=== PATIENT | female | born 2005 | race Two or more races ===

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

== ENCOUNTER 2025-01-10 01:00 | Observation (INO) | payer MEDICAID, SELFPAY ==
[2025-01-10] VITALS (12 sets, daily range): BP systolic 92–110; BP diastolic 51–57; PULSE 78–98; RESP 16–99; TEMP 37.1; O2SAT 92–100; BMI 26.7
[2025-01-10 02:03] LABS: Collection Type, Urine Clean Catch; RBC,Urine 0 /hpf (0-3)
[2025-01-10 02:57] LABS: Bacteria,Urine Rare; Bilirubin,Urine Negative (Negative); Blood,Urine Negative (Negative); Clarity,Urine Clear (Clear/Hazy); Color,Urine Colorless (Lt Yel-Yel); Glucose, Urine Negative (Negative); Ketones,Urine Negative (Negative); Leukocyte Esterase,Urine Positive (Negative); Nitrite,Urine Negative (Negative); Protein,Urine Negative (Neg - Trace); Specific Gravity,Urine 1.007 (1.001-1.035); Squamous Epithelial Cell,Urine 1 /hpf (0-5); Urobilinogen,Urine Negative mg/dL (0.0-1.0); WBC,Urine 16 /hpf (0-5)
[2025-01-10] MEDS: cefTRIAXone 1,000 MG, LIDOCAINE 1% 20 ML 2.1 ML IM (03:59)
== END 2025-01-10 05:00 | disposition home or self-care (01) ==
PROVIDERS: Admitting Provider Obstetrics & Gynecology; Visit Provider Obstetrics & Gynecology
DX: O26.892 Other specified pregnancy related conditions, second trimester (principal); Z3A.22 22 weeks gestation of pregnancy; R30.9 Painful micturition, unspecified
CPT/HCPCS: 59025; 59899; 81001; 87086; 96372; J0696; J3490

== ENCOUNTER 2025-01-22 02:45 | Observation (INO) | payer MEDICAID, SELFPAY ==
[2025-01-22] VITALS (9 sets, daily range): BP systolic 104; BP diastolic 56; PULSE 95–107; RESP 18–97; TEMP 36.8; O2SAT 93–98; BMI 18.9
--- NOTE | 2025-01-22 03:34 | XR_ITS ---
Examination: OB Transvaginal ultrasound of the pelvis, Limited Technique: Transvaginal sonographic images pelvis performed using hay scale imaging Exam date and time: January 22, 2025 at 0346 hours INDICATIONS: Vaginal bleeding beginning 2 weeks ago, labor evaluation FINDINGS: Cervix 4.3 cm closed IMPRESSION: Cervix 4.3 cm closed.
[2025-01-22 03:52] LABS: Collection Type, Urine Clean Catch; Squamous Epithelial Cell,Urine 0 /hpf (0-5)
[2025-01-22 03:57] LABS: Bilirubin,Urine Negative (Negative); Blood,Urine Negative (Negative); Clarity,Urine Clear (Clear/Hazy); Color,Urine Colorless (Lt Yel-Yel); Glucose, Urine Negative (Negative); Ketones,Urine Negative (Negative); Leukocyte Esterase,Urine Positive (Negative); Nitrite,Urine Negative (Negative); Protein,Urine Negative (Neg - Trace); RBC,Urine 1 /hpf (0-3); Specific Gravity,Urine 1.002 (1.001-1.035); Urobilinogen,Urine Negative mg/dL (0.0-1.0); WBC,Urine < 1 /hpf (0-5)
--- NOTE | 2025-01-22 04:22 | XR_ITS ---
Examination: visualization limited TECHNIQUE: Limited transabdominal sonographic images pelvis Date and time: January 22, 2025 at 0441 hours INDICATIONS: Vaginal bleeding beginning 2 weeks ago and again today FINDINGS: Viable intrauterine gestation Placenta posterior grade 1 1.8 cm from the cervix No abruption or subchorionic hemorrhage IMPRESSION: No findings of abruption or subchorionic hemorrhage
--- NOTE | 2025-01-22 05:53 | PRELIM_ITS ---
Obstetric ultrasound with Doppler. January 22, 2025 0441 hours Clinical history: Placenta- look for subchorionic hematoma/hemorrhage. Comparison: No prior study is available for comparison. Findings: There is a gravid uterus with a live fetus in cephalic presentation. cardiac activity is present at a heart rate of 136 beats per minute. The placenta is posterior in location, maturity grade 1. There is no evidence of placenta previa or retroplacental hemorrhage. Low-lying placenta at 1.8 cm from the cervix. Amniotic fluid is adequate (MERCEDEZ = 11.9 cm). No abnormalities detected by Doppler. Impression: Gravid uterus with a single live fetus in cephalic presentation. Unremarkable appearance of the placenta. Low-lying placenta at 1.8 cm from the cervix. Follow-up is recommended. Report Electronically Signed By: Mainor Little 01/22/2025 5:53:37 AM [EST]
--- NOTE | 2025-01-22 05:56 | PRELIM_ITS ---
Pelvic ultrasound (transvaginal). January 22, 2025 at 0346 hours Clinical history: Cervical length. Technique: Real-time, grayscale, transabdominal and transvaginal pelvic ultrasound was performed using Duplex scanning including arterial inflow, venous outflow, color and spectral Doppler. Comparison: No prior study is available for comparison. Findings: The cervix measures 4.3 cm, closed. Impression: The cervix measures 4.3 cm, closed. Report Electronically Signed By: Mainor Little 01/22/2025 5:55:27 AM [EST]
--- NOTE | 2025-01-22 06:29 | ESPR_ITS ---
Documentation for date of: 01/22/25 OB Labor Progress Note Pelvic Exam Amniotic membrane status: Intact Contractions Monitor mode: External Assessment and Plan Comments: Triage Note Serenity is a 19yo with SIUP at 24&1wk presenting to L&D for spotting when she wiped. No lof, no ctx. Normal movement. Current : This has only otherwise been complicated by UTI treated with rocephin and partial course of macrobid (she self discontinued the abx). Has care with Dr. Fraga in [place] ROS negative other than what was described above. Vitals wnl, afebrile General: well developed, well nourished, no acute distress, conversant Cardiac: normal heart rate Lungs: breathing without distress Abdomen: soft, gravid, non-tender, no rebound or guarding Extremities: no pain with palpation of calves NST: Reassuring for gestational age, +accels, no decels, mod hiwot Isabela: no ctx pattern Labs: Urinalysis 1 RBC <1 WBC no bacteria Radiology: Obstetric ultrasound with Doppler. January 22, 2025 0441 hours Clinical history: Placenta- look for subchorionic hematoma/hemorrhage. Comparison: No prior study is available for comparison. Findings: There is a gravid uterus with a live fetus in cephalic presentation. cardiac activity is present at a heart rate of 136 beats per minute. The placenta is posterior in location, maturity grade 1. There is no evidence of placenta previa or retroplacental hemorrhage. Low-lying placenta at 1.8 cm from the cervix. Amniotic fluid is adequate (MERCEDEZ = 11.9 cm). No abnormalities detected by Doppler. Impression: Gravid uterus with a single live fetus in cephalic presentation. Unremarkable appearance of the placenta. Low-lying placenta at 1.8 cm from the cervix. Follow-up is recommended. The cervix measures 4.3 cm, closed. Assessment: Serenity is a 19yo with SIUP at 24&1wk with no evidence of pre- term labor or residual UTI. Imaging does show low-lying placenta 1.8cm from os. Vitals wnl, benign exam. Reassuring status. Plan: -Discussed findings and diagnosis with patient and support person, answered all questions to their apparent satisfaction -Continue routine follow up with OBGYN -Discussed vaginal rest (no sex, masturbation or orgasm, etc) until after follow up ultrasound -Discussed return precautions -Safe for discharge home at this time Monique Grant MD
== END 2025-01-22 06:42 | disposition home or self-care (01) ==
PROVIDERS: Admitting Provider Obstetrics & Gynecology; Visit Provider Obstetrics & Gynecology
DX: O26.852 Spotting complicating pregnancy, second trimester (principal); O44.42 Low lying placenta NOS or without hemorrhage, second trimester; Z3A.24 24 weeks gestation of pregnancy
CPT/HCPCS: 59899; 76815; 76817; 81001

== ENCOUNTER 2025-02-12 21:38 | Observation (INO) | payer MEDICAID, SELFPAY ==
[2025-02-12] VITALS (27 sets, daily range): BP systolic 101–106; BP diastolic 53–61; PULSE 64–107; RESP 18–99; TEMP 36.7; O2SAT 99–100; BMI 28.6
--- NOTE | 2025-02-12 22:08 | XR_ITS ---
Examination: Complete OB ultrasound greater than 14 weeks Date and time of exam: February 12, 2025 1047 hours INDICATIONS: Pelvic cramping today, history of low-lying placenta Findings: Viable intrauterine single fetus with single amniotic sac presentation cephalic Cardiac motion 144 BPM Placenta posterior grade 2 Umbilical cord insertion 3 vessel seen Amniotic fluid index adequate spine maternal right Cervix 4.1 cm Ovaries obscured by bowel gas. Composite estimated gestational age based on BPD, head circumference, abdominal circumference, femur length is 27 weeks 2 days Estimated weight 1031 g. Survey of intracranial anatomy, spinal anatomy, abdominal anatomy, four-chamber heart performed with no abnormalities identified. Impression: Viable intrauterine gestation cephalic presentation.
[2025-02-12 22:39] LABS: Collection Type, Urine Voided
[2025-02-12 22:50] LABS: Bilirubin,Urine Negative (Negative); Blood,Urine Negative (Negative); Clarity,Urine Clear (Clear/Hazy); Color,Urine Colorless (Lt Yel-Yel); Glucose, Urine Negative (Negative); Ketones,Urine Negative (Negative); Leukocyte Esterase,Urine Positive (Negative); Nitrite,Urine Negative (Negative); PH,Urine 6.5 (5.0-7.0); Protein,Urine Negative (Neg - Trace); RBC,Urine 1 /hpf (0-3); Specific Gravity,Urine 1.002 (1.001-1.035); Squamous Epithelial Cell,Urine < 1 /hpf (0-5); Urobilinogen,Urine Negative mg/dL (0.0-1.0); WBC,Urine 1 /hpf (0-5)
[2025-02-12 23:15] LABS: FFN Specimen Descripton Clr Colrless Aqueous; Fetal Fibronectin Negative (Negative)
[2025-02-13] VITALS (16 sets, daily range): BP systolic 93–95; BP diastolic 52–54; PULSE 78–100; O2SAT 99–100
== END 2025-02-13 01:20 | disposition home or self-care (01) ==
PROVIDERS: Admitting Provider Specialist; Visit Provider Specialist
DX: O26.892 Other specified pregnancy related conditions, second trimester (principal); Z3A.27 27 weeks gestation of pregnancy; R10.2 Pelvic and perineal pain
CPT/HCPCS: 59899; 76805; 81001; 82731

== ENCOUNTER 2025-03-02 23:57 | Observation (INO) | payer MEDICAID, SELFPAY ==
[2025-03-03] VITALS (8 sets, daily range): BP systolic 104; BP diastolic 67; PULSE 92–107; RESP 18–98; TEMP 36.6; O2SAT 98–99; BMI 32.1
[2025-03-03 00:43] LABS: ROM Kit Lot # 58102387; Swb Mxed in Solvent 1 min? Yes
[2025-03-03 00:44] LABS: ROM Swab Mixed By: TR; Rupture of Fetal Membranes Negative (Negative)
== END 2025-03-03 00:50 | disposition home or self-care (01) ==
PROVIDERS: Admitting Provider Obstetrics & Gynecology; Visit Provider Obstetrics & Gynecology
DX: O36.8130 Decreased fetal movements, third trimester, not applicable or unspecified (principal); Z3A.29 29 weeks gestation of pregnancy
CPT/HCPCS: 59899; 84112

== ENCOUNTER 2025-03-22 14:47 | Observation (INO) | payer MEDICAID, SELFPAY ==
[2025-03-22] VITALS (13 sets, daily range): BP systolic 123; BP diastolic 60; PULSE 87–114; RESP 16–98; TEMP 36.8; O2SAT 98–100; BMI 31.5
[2025-03-22 15:57] LABS: ROM Kit Exp Date# 111527; ROM Kit Lot # 58102387; ROM Swab Mixed By: LANTH; Swb Mxed in Solvent 1 min? Yes
[2025-03-22 15:58] LABS: Rupture of Fetal Membranes Negative (Negative)
== END 2025-03-22 16:10 | disposition home or self-care (01) ==
PROVIDERS: Admitting Provider Obstetrics & Gynecology; Visit Provider Obstetrics & Gynecology
DX: O36.8130 Decreased fetal movements, third trimester, not applicable or unspecified (principal); Z3A.32 32 weeks gestation of pregnancy
CPT/HCPCS: 59025; 59899; 84112

== ENCOUNTER 2025-04-01 00:25 | Observation (INO) | payer MEDICAID, SELFPAY ==
[2025-04-01] VITALS (12 sets, daily range): BP systolic 112; BP diastolic 59; PULSE 81–100; RESP 18–100; TEMP 36.8; O2SAT 98–100; BMI 32.3
[2025-04-01 01:19] LABS: Collection Type, Urine Clean Catch
[2025-04-01] MEDS: ACETAMINOPHEN 500 MG TABLET 1000 MG PO (01:20)
[2025-04-01 01:45] LABS: Amorphous Crystals,Urine Present (Absent); Bacteria,Urine Rare; Bilirubin,Urine Negative (Negative); Blood,Urine Negative (Negative); Clarity,Urine Turbid (Clear/Hazy); Color,Urine Yellow (Lt Yel-Yel); Culture Indicated,Urine Contaminated; Glucose, Urine Negative (Negative); Ketones,Urine Negative (Negative); Leukocyte Esterase,Urine Positive (Negative); Nitrite,Urine Negative (Negative); PH,Urine 6.5 (5.0-7.0); Protein,Urine 1+ (Neg - Trace); RBC,Urine 1 /hpf (0-3); Specific Gravity,Urine 1.032 (1.001-1.035); Squamous Epithelial Cell,Urine 30 /hpf (0-5); Urobilinogen,Urine 2.0 mg/dL (0.0-1.0); WBC,Urine 18 /hpf (0-5)
[2025-04-01 02:02] LABS: FFN Specimen Descripton Clr Colrless Aqueous; Fetal Fibronectin Negative (Negative)
[2025-04-01] MEDS: NITROFURANTOIN MACRO 100 MG CAPSULE PO (02:05)
--- NOTE | 2025-04-01 15:35 | PC.NURSE ---
PT HAD CALLED EARLIER STATING HAD GONE TO [employer] PRESCRIPTION AND WAS TOLD MEDICATION WAS NOT PRESCRIBED, LOOKED INTO TRIAGE LOG BOOK, NOTED PT WAS PRESCRIBED MACROBID 100MG PO BID [id number] DAYS, CALLED [facility], PER TECH NO PRESCRIPTION WAS CALLED IN OR E-SCRIBED, SPOKE WITH PHARMACIST, PROVIDED PRESCRIPTION INFO, WILL FILL PRESCRIPTION, CALLED PT TWICE TO INFORM OF PRESCRIPTION WAS CALLED BUT NO ANSWER, WILL CALL AGAIN LATER
== END 2025-04-01 02:16 | disposition home or self-care (01) ==
PROVIDERS: Admitting Provider Specialist; Visit Provider Specialist
DX: O26.893 Other specified pregnancy related conditions, third trimester (principal); R10.2 Pelvic and perineal pain; O12.03 Gestational edema, third trimester; Z3A.34 34 weeks gestation of pregnancy
CPT/HCPCS: 59025; 59899; 81001; 82731; A9270

== ENCOUNTER 2025-04-08 21:03 | Observation (INO) | payer MEDICAID, SELFPAY ==
[2025-04-08 21:14] VITALS: BP 108/72; PULSE 99; RESP 16; RESP 99; TEMP 36.8; BMI 32.5
[2025-04-08 21:24] VITALS: BP 108/72; PULSE 99
[2025-04-08 21:49] LABS: ROM Kit Exp Date# 1/18/28; ROM Kit Lot # 58104371; ROM Swab Mixed By: DC; Rupture of Fetal Membranes Negative (Negative); Swb Mxed in Solvent 1 min? Yes
== END 2025-04-08 22:15 | disposition home or self-care (01) ==
PROVIDERS: Admitting Provider Obstetrics & Gynecology; Visit Provider Obstetrics & Gynecology
DX: O26.853 Spotting complicating pregnancy, third trimester (principal); Z3A.35 35 weeks gestation of pregnancy
CPT/HCPCS: 59025; 59899; 84112

== ENCOUNTER 2025-04-27 18:38 | Observation (INO) | payer MEDICAID, SELFPAY ==
[2025-04-27] VITALS (8 sets, daily range): BP systolic 113; BP diastolic 69; PULSE 78–99; RESP 20–99; TEMP 37.3; O2SAT 96–99; BMI 33.4
[2025-04-27 19:24] LABS: ROM Kit Exp Date# 01/18/28; ROM Kit Lot # 58104371; ROM Swab Mixed By: YG; Swb Mxed in Solvent 1 min? Yes
[2025-04-27 19:27] LABS: Rupture of Fetal Membranes Negative (Negative)
== END 2025-04-27 19:49 | disposition home or self-care (01) ==
PROVIDERS: Admitting Provider Obstetrics & Gynecology; Visit Provider Obstetrics & Gynecology
DX: Z34.03 Encounter for supervision of normal first pregnancy, third trimester (principal); Z3A.37 37 weeks gestation of pregnancy
CPT/HCPCS: 59025; 59899; 84112

== ENCOUNTER 2025-05-06 03:31 | Observation (INO) | payer MEDICAID, SELFPAY ==
[2025-05-06 03:35] VITALS: BP 122/78; PULSE 87; RESP 100; RESP 16; TEMP 36.9
[2025-05-06 03:39] VITALS: BMI 33.4
[2025-05-06 03:47] VITALS: BP 122/78; PULSE 87
== END 2025-05-06 04:35 | disposition home or self-care (01) ==
PROVIDERS: Admitting Provider Obstetrics & Gynecology; Visit Provider Obstetrics & Gynecology
DX: O26.893 Other specified pregnancy related conditions, third trimester (principal); Z3A.39 39 weeks gestation of pregnancy; R10.30 Lower abdominal pain, unspecified
CPT/HCPCS: 59025; 59899